=== PATIENT | female | born 1990 | race Caucasian/White ===

== ENCOUNTER → 2017-05-22 | Day surgery (SDC) | payer OTHER ==
[~2017-05-22] VITALS: Ht 172.7 cm; Wt 74.4 kg
[~2017-05-22] MED LIST: CLARITIN D 24HR1 TAB PO; TRI-SPRINTEC T1 EACH PO; TYLENOL WITH C1 EACH PO
--- NOTE | ~2017-05-22 | OR ---
PATIENT'S NAME: NORMA LOVE [facility] AGE: 26 Y [address] ROOM: [place] [id number] [place] [facility] [place]: 05/22/[place] OR/Procedure Report DISCHARGE DATE: FAMILY PHYSICIAN: Kandi Diego DO ATTENDING PHYSICIAN: Aj Patel V SURGEON: Aj Patel MD TAPPER HELPER: DATE OF PROCEDURE: 05/22/2017 PREOPERATIVE DIAGNOSIS: Left recurrent parotid mass. POSTOPERATIVE DIAGNOSIS: Left recurrent parotid mass. OPERATION/PROCEDURE PERFORMED: Revision of left superficial parotidectomy with facial nerve dissection. ANESTHESIA: General endotracheal anesthesia. ESTIMATED BLOOD LOSS: Minimal. COMPLICATIONS: None. DESCRIPTION OF PROCEDURE: The patient was taken to the operating room, laid in supine position with general endotracheal anesthesia. Head was rotated to the right. Left face was approached. The previous incision was infiltrated with 1% lidocaine with epinephrine solution. Neck was prepped and draped in the usual sterile fashion using Betadine solution. Left modified Fritz neck incision was then performed using #15 blade. Subcutaneous tissue was divided using #15 blade. Dissection was performed within the superficial musculoaponeurotic fascia, for which there was noted to be a moderate amount of scar tissue. Anterior skin flap was secured with 2-0 silk sutures. Dissection was performed along the tragal pointer. The earlobe was then reflected superiorly with 2-0 stay suture. The parotid was taken off the anterior border of the sternocleidomastoid muscle. Blunt dissection was performed. The facial nerve was identified. Flanking maneuver was performed superiorly as well as inferiorly, and the parotid tissue was suture ligated with 3-0 silk sutures. The marginal and cervical branch of the facial nerve were then followed inferiorly. Buccal branches all followed superiorly, and the parotid tissue was clamped and suture ligated superficial to the branch. The frontal and zygomatic branch was then followed superiorly as well as anteriorly. Again parotid tissue was clamped and suture ligated between these branches. The parotid tissue between the marginal mandibular and a buccal branch was divided with hemostat, and a fairly large residual superficial lobe was removed. The wound was irrigated with gross amounts of bacitracin solution. The subcutaneous tissues were approximated using interrupted 5-0 PATIENT'S NAME: NORMA LOVE [facility] AGE: 26 Y [address] ROOM: [place], [place] [id number] [place] [facility] [place]: 05/22/[place] OR/Procedure Report DISCHARGE DATE: FAMILY PHYSICIAN: Kandi Diego DO ATTENDING PHYSICIAN: Aj Patel V Vicryl. Skin closure performed with subcuticular 4-0 Monocryl. Steri-Strips and occlusive dressing was applied. The patient tolerated the procedure well, was aroused, extubated, and discharged from the operating room to the recovery room in satisfactory condition. MD ИВАН VILLAGOMEZ/modl /[id number] d: 05/22/17 1611 t: 05/25/17 1309, OPERATIVE SUMMARY
== END | disposition disaster alternative care site (69) ==
LOC: GPOC 05-15 09:00 → GSDC 05-15 09:00
PROC: 0CBC0ZZ Excision of Left Parotid Duct, Open Approach (ICD-10-PCS; principal; 2017-05-22)
DX: D11.0 Benign neoplasm of parotid gland (principal); Z91.040 Latex allergy status
CPT/HCPCS: J1100; J2001; J2250; J2405; J3010; J7030